=== PATIENT | female | born 1950 | race Caucasian/White ===

== ENCOUNTER 2019-06-20 09:21 | Emergency (ER) | payer MEDICARE ==
[2019-06-20] MEDS ORDERED: IPRATROPIUM/ALBUTEROL 3 ML NEB INH STA (09:37)
--- NOTE | 2019-06-20 09:40 | ED Physician Documentation ---
PD HPI DYSPNEA - Stated complaint Stated Complaint: SORE THROAT - Chief complaint Chief Complaint: Resp - History obtained from History obtained from: Patient - History of Present Illness Timing - onset: How many days ago (3) Timing - details: Still present Worsened by: Coughing Associated symptoms: Cough Similar symptoms before: Diagnosis (bronchitis) - Additional information Additional information: The patient is a 68-year-old female who presents with productive cough and sore throat that started 3 days ago after an airplane flight from [place]. Her cough is productive of sputum. She denies fever or chest pain. She reports headache, and reports that her ears popped during the flight. She has been using Mucinex and Robitussin, as well as Symbicort inhaler without relief. She reports history of similar symptoms in the past with bronchitis. She has no history of cigarette smoking. Review of Systems Constitutional: denies: Fever Eyes: denies: Irritation Ears: denies: Tinnitus/ringing Nose: denies: Congestion Throat: reports: Sore throat Cardiac: denies: Chest pain / pressure, Palpitations Respiratory: reports: Dyspnea, Cough GI: denies: Abdominal Pain, Nausea, Vomiting : denies: Dysuria Skin: denies: Rash Musculoskeletal: denies: Back pain Neurologic: reports: Headache. denies: Focal weakness, Numbness PD PAST MEDICAL HISTORY - Past Medical History Cardiovascular: Hypertension, High cholesterol Respiratory: Pneumonia, Other (bronchitis) Neuro: None Endocrine/Autoimmune: None - Present Medications Home Medications: Ambulatory Orders Medication Instructions Recorded Confirmed Albuterol Sulf [Ventolin Hfa 1 - 2 puffs INH Q4HR PRN #1 inhaler 06/20/19 Inhaler] Amoxicillin 500 mg PO TID #21 capsule 06/20/19 Budesonide/Formoterol Fumarate 10.2 gm IH 06/20/19 [Symbicort 160-4.5 Mcg Inhaler] Citalopram [CeleXA] mg PO ONCE 06/20/19 Metoprolol Tartrate 06/20/19 Statin 06/20/19 Vit D 06/20/19 predniSONE [Prednisone] 40 mg PO DAILY #10 tablet 06/20/19 traZODone [Desyrel] 50 mg PO ONCE 06/20/19 06/20/19 - Allergies Allergies/Adverse Reactions: Allergies Allergy/AdvReac Type Severity Reaction Status Date / Time Sulfa (Sulfonamide Allergy Edema Verified 06/20/19 09:28 Antibiotics) - Social History Does the pt smoke?: No Smoking Status: Never smoker PD ED PE NORMAL - Vitals Vital signs reviewed: Yes (Systolic hypertension) - General General: Alert and oriented X 3, Well developed/nourished, Other (Wheezy- sounding cough.) - HEENT HEENT: Atraumatic, Pharynx benign, Other (Left tympanic membrane is erythematous and dull, with loss of landmarks. Right tympanic membrane is clear.) - Neck Neck: Supple, no meningeal sign, No adenopathy, No JVD - Cardiac Cardiac: RRR - Respiratory Respiratory: Other (Expiratory wheezing, more on the right than the left.) - Abdomen Abdomen: Soft, Non tender - Back Back: No CVA TTP - Derm Derm: No rash - Extremities Extremities: No edema, No calf tenderness / cord - Neuro Neuro: Alert and oriented X 3, No motor deficit, No sensory deficit, Normal speech Results - Vitals Vitals: Vital Signs - 24 hr 06/20/19 06/20/19 06/20/19 09:25 10:10 10:36 Temperature 37.1 C Heart Rate 103 H 91 86 Respiratory 18 16 16 Rate Blood Pressure 152/74 H 134/65 H O2 Saturation 98 98 Oxygen O2 Source Room air - Rads (name of study) CXR Radiology: Prelim report reviewed, EMP read contemporaneously, See rad report (Bronchial thickening findings which can be seen with bronchitis. Hiatal hernia.) PD MEDICAL DECISION MAKING - ED course Complexity details: reviewed results, re-evaluated patient, considered differential, d/w patient, d/w family ED course: The patient's presentation is most consistent with acute bronchitis, and left otitis media. Her chest x-ray reveals bronchial thickening, without evidence of pneumonia or pleural effusion. Treatment in the emergency department included administration of ibuprofen 800 mg orally, dexamethasone 10 mg orally, and DuoNeb nebulizer. Her air movement did improve with the above treatment. She is being discharged with prescriptions for amoxicillin, prednisone, and albuterol inhaler. I discussed with her and her family the expected course of illness, treatment and outpatient follow-up, as well as potentially worrisome signs or symptoms that should prompt reevaluation in the emergency department. Departure - Departure Disposition: 01 Home, Self Care Clinical Impression: Bronchitis, Acute left otitis media Condition: Stable Instructions: ED Bronchitis Asthmatic, ED Otitis Media Serous Adult Prescriptions: Albuterol Sulf [Ventolin Hfa Inhaler] 1 - 2 puffs INH Q4HR PRN #1 inhaler PRN Reason: Shortness Of Air/Wheezing Amoxicillin 500 mg PO TID #21 capsule predniSONE [Prednisone] 40 mg PO DAILY #10 tablet Comments: Take amoxicillin 3 times daily as prescribed. You can use albuterol inhaler as needed for wheezing. Take prednisone daily as prescribed. Return to the emergency department if you develop increasing difficulty breathing, or otherwise worsening symptoms.
[2019-06-20] MEDS ORDERED: IBUPROFEN 800 MG TABLET PO STA (10:02)
--- NOTE | 2019-06-20 10:14 | XRAY Report ---
Reason: cough and dyspnea Procedure Date: 06/20/2019 Accession Number: [id number] / [id number] Procedure: XR - Chest 2 View X-Ray CPT Code: 87102 FULL RESULT: EXAM: CHEST RADIOGRAPHY EXAM DATE: 06/20/2019 09:57 AM. CLINICAL HISTORY: Cough and dyspnea. COMPARISON: None. TECHNIQUE: 2 views. FINDINGS: Lungs/Pleura: Interstitial prominence. Bronchial thickening. No pleural effusions. No pneumothorax. Mediastinum: Heart size upper normal. Aorta is tortuous. Aortic atherosclerosis. Hiatal hernia present with a transverse dimension measuring 10.7 cm. Other: Degenerative changes. IMPRESSION: 1. Bronchial thickening findings which can be seen with bronchitis. 2. Hiatal hernia. RADIA
[2019-06-20] MEDS ORDERED: DEXAMETHASONE 10 MG/ML VIAL PO STA (10:24)
[2019-06-20] MEDS ORDERED: CHERRY SYRUP 10 ML UDC PO ONE (10:24)
[2019-06-20 11:46] VITALS: BP 134/65
== END 2019-06-20 11:43 | disposition home or self-care (01) ==
LOC: ED 09:21
DX: J40 Bronchitis, not specified as acute or chronic (principal); H66.92 Otitis media, unspecified, left ear; I10 Essential (primary) hypertension; K44.9 Diaphragmatic hernia without obstruction or gangrene
CPT/HCPCS: 71046; 94640; 99283; A9270